=== PATIENT | male | born 1955 | race Caucasian/White ===

== ENCOUNTER 2017-12-01 23:13 | Emergency (ER) | payer BC ==
[2017-12-02 00:30] LABS: BASOPHILS % (AUTO) 10 % (0-3); EOSINOPHILS % (AUTO) 14 % (0-9); HEMATOCRIT 23 % (39-53); HEMOGLOBIN 8.3 gm/dl (13.5-17.7); LYMPHOCYTES % (AUTO) 6.97 % (10-50); MEAN CORPUSCULAR HGB CONC 35.5 gm/dl (32.0-36.0); MEAN CORPUSCULAR VOLUME 84 fL (80-100); MONOCYTES % (AUTO) 15.5 % (0-12); NEUTROPHILS % (AUTO) 53.1 % (37-80)
[2017-12-02 00:34] LABS: LACTIC ACID 1.1 mMol/L (0.0-2.0)
[2017-12-02 00:37] LABS: INR 1.14 (0.86-1.12)
[2017-12-02 00:41] LABS: ALBUMIN 2.9 gm/dl (3.4-5.0); BILIRUBIN,TOTAL 0.3 mg/dl (0.2-1.0); CALCIUM 8.2 mg/dl (8.5-10.1); CREATININE 2.26 mg/dl (0.80-1.30); POTASSIUM 4.1 mMol/L (3.5-5.1); TOTAL PROTEIN 6.3 gm/dl (6.4-8.2)
[2017-12-02] MEDS ORDERED: SODIUM CHLORIDE 0.9% FLUSH 10 ML SOL IV PRN (01:30)
[2017-12-02 01:36] VITALS: O2SAT 98
[2017-12-02] MEDS ORDERED: SODIUM CHLORIDE 0.9% 1000ML 500 ML IV SCH (01:45)
[2017-12-02] MEDS ORDERED: VANCOMYCIN HCL 500 MG PDS 1,000 MG in SODIUM CHLORIDE 0.9% 250 ML 250 ML IV ONE (02:04)
[2017-12-02] MEDS ORDERED: PIPERACILLIN/TAZOBACT 3.375 GM 3.375 GM in SODIUM CHLORIDE 0.9% 100 ML 100 ML IV SCH (02:15)
[2017-12-02] MEDS ORDERED: HEPARIN SODIUM 100 U/ML SOL IV ONE (02:46)
[2017-12-02] MEDS ORDERED: VANCOMYCIN HYDROCHLORIDE 500 MG PDS IV ONE (03:14)
[2017-12-02] MEDS ORDERED: PIPERACILLIN/TAZOBACT 3.375 GM PDS IV ONE (03:14)
[2017-12-02 03:16] LABS: APPEARANCE,URINE Clear; BILIRUBIN,URINE NEGATIVE (NEGATIVE); COLOR,URINE Yellow; GLUCOSE, URINE (UA) NEGATIVE (NEGATIVE); KETONES,URINE NEGATIVE (NEGATIVE); LEUKOCYTE ESTERASE ,URINE NEGATIVE (NEGATIVE); NITRATE,URINE NEGATIVE (NEGATIVE); OCCULT BLOOD,URINE 2+ (NEG-TRACE); UROBILINOGEN,URINE 0.2 (0.2-1.0 EU)
[2017-12-02 03:25] LABS: EPITHELIAL CELLS 0-2 (SQUAMOUS); RBC,URINE 0-2 (0-3AV/HPF); WBC,URINE 0-2 (0-5AV/HPF)
[2017-12-02 03:26] LABS: BACTERIA 1+ (< 1+); CRYSTALS 1+ AMORPH URATES (0-3 AVE/HPF)
[2017-12-02] MEDS ORDERED: HEPARIN 500 Unit PRE-FILL 100 U/ML SOL IV PRN (03:30)
[2017-12-02] MEDS ORDERED: ACETAMINOPHEN 325 MG PO ONE (03:45)
[2017-12-02] MEDS ORDERED: ACETAMINOPHEN 325 MG ONE (03:46)
[2017-12-02 04:31] VITALS: BP 149/84; PULSE 114; RESP 22; TEMP 101.3
== END 2017-12-02 04:10 | disposition short-term general hospital (02) ==
LOC: ED 23:13
DX: R50.9 Fever, unspecified (principal); Z94.4 Liver transplant status; Z94.0 Kidney transplant status
CPT/HCPCS: 36415; 80053; 81001; 85025; 85610; 87040; 96365; 99284; 99291; J1644; J2543; J3370